=== PATIENT | male | born 1940 | race Caucasian/White ===

== ENCOUNTER 2021-04-29 12:42 | Inpatient (IN) | payer OTHER ==
[~2021-04-29] VITALS: Ht 167.6 cm; Wt 69.9 kg
[2021-04-29 13:26] LABS: BASOPHILS % 0.6 % (0.0-2.0); EOSINOPHILS % 0.2 % (0.0-5.0); LYMPHOCYTES % 13.9 % (20.0-50.0); MEAN CORPUSCULAR HEMOGLOBIN 32.9 pg (28.0-32.0); MEAN CORPUSCULAR VOLUME 100.1 fL (80.0-94.0); MEAN PLATELET VOLUME 7.4 fl (7.4-10.4); MONOCYTES % 5.8 % (2.0-8.0); NEUTROPHILS % 79.5 % (40.0-76.0); PLATELET 237 x1000/uL (130-400); RED BLOOD CELL COUNT 1.18 mill/uL (4.7-6.1); RED CELL DISTRIBUTION WIDTH 17.6 % (11.6-14.6)
[2021-04-29 13:28] LABS: CHLORIDE 105 mEq/L (98-107)
[2021-04-29] MEDS ORDERED: OCTREOTIDE ACETATE 50 MCG/ML 1ML IV STA (13:28)
[2021-04-29] MEDS ORDERED: PANTOPRAZOLE 80 MG in SODIUM CHLORIDE 0.9% 100 ML IV STA (13:28)
[2021-04-29] MEDS ORDERED: PANTOPRAZOLE SODIUM 40 MG/VIAL IV STA (13:28)
[2021-04-29] MEDS ORDERED: CEFTRIAXONE 1 G PREMIX 50 ML IV ONE (13:30)
[2021-04-29] MEDS ORDERED: METOCLOPRAMIDE HCL 10MG/2ML VIAL IV ONE (13:30)
[2021-04-29 13:31] LABS: INR 1.5; PROTHROMBIN TIME 15.6 sec (9.6-11.0)
[2021-04-29 13:32] LABS: ETHANOL BLOOD < 10 mg/dL
[2021-04-29 13:33] LABS: HEMATOCRIT. 11.8 % (42.0-52.0); HEMOGLOBIN. 3.9 g/dL (14.0-18.0)
[2021-04-29 13:37] LABS: CREATINE KINASE 46 IU/L (39-308)
[2021-04-29] MEDS ORDERED: TRANEXAMIC ACID 1,000 MG/10 ML IV ONE (13:45)
[2021-04-29 15:23] LABS: HEPATITIS B SURFACE ANTIGEN NEGATIVE
[2021-04-29] MEDS ORDERED: MAGNESIUM/ALUMINUM HYDROXIDE/SIMETHICONE 30ML UDC PO PRN (18:45)
[2021-04-29] MEDS ORDERED: CLONIDINE 0.1MG TABLET PO PRN (18:45)
[2021-04-29] MEDS ORDERED: NALOXONE HCL 0.4MG/ML VIAL IV PRN (18:45)
[2021-04-29] MEDS ORDERED: HYDROCODONE/ACETAMINOPHEN 5/325MG TABLET PO PRN (18:45)
[2021-04-29] MEDS ORDERED: GUAIFENESIN 200MG/10ML SUGAR FREE UDC PO PRN (18:45)
[2021-04-29] MEDS ORDERED: ONDANSETRON HCL 4MG/2ML INJ IV PRN (18:45)
[2021-04-29] MEDS ORDERED: IPRATROPIUM/ALBUTEROL 0.5-3(2.5)MG/3ML NEB HHN PRN (18:45)
[2021-04-29] MEDS ORDERED: HYDRALAZINE 20MG/ML VIAL IV PRN (18:45)
[2021-04-29] MEDS ORDERED: ACETAMINOPHEN 325MG TABLET PO PRN (18:45)
[2021-04-29] MEDS ORDERED: DOCUSATE SODIUM 100MG CAPSULE PO PRN (18:45)
[2021-04-29] MEDS ORDERED: MORPHINE SULFATE 2 MG/ML CPJ (NOT FOR IM USE) IV PRN (18:45)
[2021-04-29] MEDS ORDERED: LACTULOSE 20G/30ML UDC PO SCH (19:00)
[2021-04-29] MEDS ORDERED: OCTREOTIDE 1,000 MCG in SODIUM CHLORIDE 0.9% 100 ML IV SCH ×4 (19:30)
[2021-04-29 20:13] LABS: TOTAL IRON BINDING CAPACITY 163 ug/dL (250-450)
[2021-04-29 20:17] LABS: FOLIC ACID (FOLATE) SERUM >20 ng/mL ng/mL (>5.38)
[2021-04-29 20:29] LABS: VITAMIN B12 SERUM >2000 pg/mL pg/mL (211-911)
[2021-04-29] MEDS: LORAZEPAM 2MG/ML CPJ IV PRN (20:29)
[2021-04-29] MEDS: DEXT 5%/0.45% NACL 1000ML 1,000 ML IV SCH (20:57)
[2021-04-29] MEDS: SODIUM CHLORIDE 0.9% INJ 3ML FLUSH IVF SCH (22:26)
[2021-04-29 22:41] LABS: FERRITIN 7206 ng/mL (22-322)
[2021-04-30] VITALS (42 sets, daily range): BP systolic 57–167; BP diastolic 19–105
[2021-04-30 03:09] LABS: HEMATOCRIT 26.5 % (42.0-52.0)
[2021-04-30] MEDS: LORAZEPAM 2MG/ML CPJ IV PRN (05:14)
[2021-04-30 05:21] LABS: BASOPHILS % 0.9 % (0.0-2.0); EOSINOPHILS % 0.7 % (0.0-5.0); HEMATOCRIT. 25.6 % (42.0-52.0); HEMOGLOBIN. 8.5 g/dL (14.0-18.0); LYMPHOCYTES % 19.9 % (20.0-50.0); MEAN CORPUSCULAR HEMOGLOBIN 30.8 pg (28.0-32.0); MEAN CORPUSCULAR VOLUME 92.3 fL (80.0-94.0); MEAN PLATELET VOLUME 8.2 fl (7.4-10.4); MONOCYTES % 7.5 % (2.0-8.0); PLATELET 121 x1000/uL (130-400); RED BLOOD CELL COUNT 2.77 mill/uL (4.7-6.1); RED CELL DISTRIBUTION WIDTH 16.6 % (11.6-14.6)
[2021-04-30 05:34] LABS: CHLORIDE 106 mEq/L (98-107)
[2021-04-30] MEDS: SODIUM CHLORIDE 0.9% INJ 3ML FLUSH IVF SCH ×2 (06:07→21:01)
[2021-04-30] MEDS ORDERED: NICARDIPINE 100 MG in SODIUM CHLORIDE 0.9% 60 ML IV PRN (10:00)
[2021-04-30] MEDS ORDERED: IOHEXOL-350 100 ML BOTTLE ONE (11:02)
[2021-04-30] MEDS: OCTREOTIDE 1,000 MCG in SODIUM CHLORIDE 0.9% 98 ML IV SCH (12:05)
[2021-04-30] MEDS: LEVETIRACETAM 500MG PREMIX 100 ML IV SCH ×2 (12:05→21:01)
[2021-04-30] MEDS: LACTULOSE 20G/30ML UDC PO SCH ×2 (12:10→18:23)
[2021-04-30] MEDS ORDERED: LIDOCAINE HCL/PF 1% 10 MG/ML 5ML VIAL ONE (12:57)
[2021-04-30 12:58] LABS: HEMOGLOBIN 8.1 g/dL (14.0-18.0)
[2021-04-30] MEDS ORDERED: NEPVIT PO (16:52)
[2021-04-30] MEDS ORDERED: FOLI20CA MT (16:52)
[2021-04-30] MEDS ORDERED: CALC667T6 MT (16:52)
[2021-04-30] MEDS ORDERED: ASPI-1497 PO (16:52)
[2021-04-30] MEDS ORDERED: ASCO100T12 MT (16:52)
[2021-04-30] MEDS ORDERED: GABA-529 PO (16:52)
[2021-04-30] MEDS ORDERED: FURO40TA5 PO (16:52)
[2021-04-30] MEDS ORDERED: LATA2.5D14 EACHEYE (16:52)
[2021-04-30] MEDS: DEXT 5%/0.45% NACL 1000ML 1,000 ML IV SCH (18:23)
[2021-04-30 18:40] LABS: HEMATOCRIT 25.6 % (42.0-52.0); HEMOGLOBIN 8.7 g/dL (14.0-18.0)
[2021-05-01] VITALS (83 sets, daily range): BP systolic 38–167; BP diastolic 27–117
[2021-05-01 00:56] LABS: HEMATOCRIT 23.4 % (42.0-52.0)
[2021-05-01] MEDS: LACTULOSE 20G/30ML UDC PO SCH ×5 (00:56→23:53)
[2021-05-01] MEDS: OCTREOTIDE 1,000 MCG in SODIUM CHLORIDE 0.9% 98 ML IV SCH (05:11)
[2021-05-01] MEDS: SODIUM CHLORIDE 0.9% INJ 3ML FLUSH IVF SCH ×3 (05:12→22:00)
[2021-05-01 06:14] LABS: EOSINOPHILS % 1.4 % (0.0-5.0); HEMATOCRIT. 24.4 % (42.0-52.0); HEMOGLOBIN. 8.4 g/dL (14.0-18.0); LYMPHOCYTES % 15.8 % (20.0-50.0); MEAN CORPUSCULAR HEMOGLOBIN 31.9 pg (28.0-32.0); MEAN CORPUSCULAR VOLUME 92.7 fL (80.0-94.0); MEAN PLATELET VOLUME 8.6 fl (7.4-10.4); NEUTROPHILS % 74.8 % (40.0-76.0); PLATELET 126 x1000/uL (130-400); RED BLOOD CELL COUNT 2.63 mill/uL (4.7-6.1); RED CELL DISTRIBUTION WIDTH 17.3 % (11.6-14.6)
[2021-05-01 07:44] LABS: BG BASE EXCESS 2.7 mmol/L (-2.0-2.0); BG CARBOXYHEMOGLOBIN 0.7 % (0.5-1.5); BG DEOXYHEMOGLOBIN 3.7 % (0.0-5.0); BG HCO3 ACT 27.6 mmol/L (22.0-26.0); BG METHEMOGLOBIN 0.3 % (0.0-1.5); BG OXYGEN SATURATION 96.3 % (92.0-98.5); BG OXYHEMOGLOBIN 95.3 % (94.0-97.0); BG PCO2 43.8 mmHg (35.0-45.0); BG PH 7.417 (7.350-7.450); BG PO2 82.5 mmHg (75.0-100.0); BG SAMPLE SITE RIGHT BRACHIAL; BG TOTAL HEMOGLOBIN 9.7 g/dL (12.0-18.0); BG VENT MODE ROOM AIR
[2021-05-01] MEDS: LEVETIRACETAM 500MG PREMIX 100 ML IV SCH ×2 (10:11→20:17)
[2021-05-01 10:54] LABS: HEMATOCRIT 24.9 % (42.0-52.0); HEMOGLOBIN 8.6 g/dL (14.0-18.0)
[2021-05-01] MEDS ORDERED: NOREPINEPHRINE 8 MG in DEXT 5% WATER 242 ML IV PRN (12:00)
[2021-05-01 16:41] LABS: HEMATOCRIT 24.1 % (42.0-52.0); HEMOGLOBIN 8.4 g/dL (14.0-18.0)
[2021-05-01] MEDS: PANTOPRAZOLE SODIUM 40 MG/VIAL IV SCH (18:08)
[2021-05-01] MEDS: DEXT 5%/0.45% NACL 1000ML 1,000 ML IV SCH (18:32)
[2021-05-01 20:13] LABS: HEMATOCRIT 24.5 % (42.0-52.0); HEMOGLOBIN 8.3 g/dL (14.0-18.0)
[2021-05-02] VITALS (33 sets, daily range): BP systolic 99–165; BP diastolic 37–114
[2021-05-02 02:07] LABS: HEMATOCRIT 24.3 % (42.0-52.0); HEMOGLOBIN 8.3 g/dL (14.0-18.0)
[2021-05-02 05:59] LABS: BASOPHILS % 0.9 % (0.0-2.0); EOSINOPHILS % 1.8 % (0.0-5.0); HEMATOCRIT. 23.3 % (42.0-52.0); HEMOGLOBIN. 7.9 g/dL (14.0-18.0); LYMPHOCYTES % 16.9 % (20.0-50.0); MEAN CORPUSCULAR HEMOGLOBIN 31.4 pg (28.0-32.0); MEAN CORPUSCULAR VOLUME 92.7 fL (80.0-94.0); MEAN PLATELET VOLUME 8.7 fl (7.4-10.4); MONOCYTES % 6.6 % (2.0-8.0); NEUTROPHILS % 73.8 % (40.0-76.0); PLATELET 141 x1000/uL (130-400); RED BLOOD CELL COUNT 2.52 mill/uL (4.7-6.1); RED CELL DISTRIBUTION WIDTH 16.8 % (11.6-14.6)
[2021-05-02] MEDS: SODIUM CHLORIDE 0.9% INJ 3ML FLUSH IVF SCH ×3 (06:00→20:47)
[2021-05-02] MEDS: PANTOPRAZOLE SODIUM 40 MG/VIAL IV SCH ×2 (06:05→17:55)
[2021-05-02] MEDS: LACTULOSE 20G/30ML UDC PO SCH ×4 (06:05→23:22)
[2021-05-02] MEDS: LEVETIRACETAM 500MG PREMIX 100 ML IV SCH ×2 (09:48→20:46)
[2021-05-02 15:36] LABS: HEMATOCRIT 23.6 % (42.0-52.0)
[2021-05-02] MEDS: DEXT 5%/0.45% NACL 1000ML 1,000 ML IV SCH (17:55)
[2021-05-02 21:26] LABS: HEPATITIS B SURFACE ANTIGEN NEGATIVE
[2021-05-03] VITALS: BP 149/77
[2021-05-03] MEDS: DIPHENHYDRAMINE 50MG/ML VIAL IV PRN (02:45)
[2021-05-03 04:00] VITALS: BP_SYST 140; BP_SYST 170; BP_DIAS 57; BP_DIAS 71
[2021-05-03] MEDS: PANTOPRAZOLE SODIUM 40 MG/VIAL IV SCH ×2 (05:39→17:56)
[2021-05-03] MEDS: LACTULOSE 20G/30ML UDC PO SCH ×4 (05:39→23:55)
[2021-05-03] MEDS: SODIUM CHLORIDE 0.9% INJ 3ML FLUSH IVF SCH ×3 (05:40→21:35)
[2021-05-03 07:40] LABS: EOSINOPHILS % 2.1 % (0.0-5.0); HEMATOCRIT. 22.9 % (42.0-52.0); HEMOGLOBIN. 7.8 g/dL (14.0-18.0); LYMPHOCYTES % 19.8 % (20.0-50.0); MEAN CORPUSCULAR HEMOGLOBIN 31.9 pg (28.0-32.0); MEAN CORPUSCULAR VOLUME 93.3 fL (80.0-94.0); MEAN PLATELET VOLUME 8.6 fl (7.4-10.4); MONOCYTES % 6.4 % (2.0-8.0); NEUTROPHILS % 70.7 % (40.0-76.0); PLATELET 129 x1000/uL (130-400); RED BLOOD CELL COUNT 2.45 mill/uL (4.7-6.1); RED CELL DISTRIBUTION WIDTH 16.6 % (11.6-14.6)
[2021-05-03 08:00] VITALS: BP 146/79
[2021-05-03] MEDS: LEVETIRACETAM 500MG PREMIX 100 ML IV SCH ×2 (08:20→21:35)
[2021-05-03 12:00] VITALS: BP 98/65
[2021-05-03 16:00] VITALS: BP 126/59
[2021-05-03] MEDS: DEXT 5%/0.45% NACL 1000ML 1,000 ML IV SCH (17:56)
[2021-05-03 20:00] VITALS: BP 115/65
[2021-05-04] VITALS: BP 144/63
[2021-05-04] MEDS: DIPHENHYDRAMINE 50MG/ML VIAL IV PRN (00:03)
[2021-05-04 04:00] VITALS: BP 128/72
[2021-05-04] MEDS: LACTULOSE 20G/30ML UDC PO SCH ×3 (05:34→17:50)
[2021-05-04] MEDS: PANTOPRAZOLE SODIUM 40 MG/VIAL IV SCH ×2 (05:34→17:50)
[2021-05-04] MEDS: SODIUM CHLORIDE 0.9% INJ 3ML FLUSH IVF SCH ×3 (05:35→22:12)
[2021-05-04 08:00] VITALS: BP 139/82
[2021-05-04] MEDS: LEVETIRACETAM 500MG PREMIX 100 ML IV SCH ×2 (08:28→22:12)
[2021-05-04] MEDS: AMLODIPINE 2.5MG TABLET NG SCH (11:29)
[2021-05-04 12:00] VITALS: BP 155/87
[2021-05-04 16:00] VITALS: BP 140/78
[2021-05-04] MEDS: DEXT 5%/0.45% NACL 1000ML 1,000 ML IV SCH (17:50)
[2021-05-04 20:00] VITALS: BP 107/62
[2021-05-05] VITALS: BP 140/72
[2021-05-05] MEDS: SODIUM CHLORIDE 0.9% INJ 3ML FLUSH IVF SCH ×3 (06:00→22:00)
[2021-05-05] MEDS: PANTOPRAZOLE SODIUM 40 MG/VIAL IV SCH ×2 (06:00→17:12)
[2021-05-05 06:19] LABS: BASOPHILS % 0.3 % (0.0-2.0); EOSINOPHILS % 1.5 % (0.0-5.0); HEMATOCRIT. 26.7 % (42.0-52.0); LYMPHOCYTES % 18.6 % (20.0-50.0); MEAN CORPUSCULAR HEMOGLOBIN 31.8 pg (28.0-32.0); MEAN PLATELET VOLUME 8.9 fl (7.4-10.4); MONOCYTES % 6.5 % (2.0-8.0); NEUTROPHILS % 73.1 % (40.0-76.0); PLATELET 129 x1000/uL (130-400); RED BLOOD CELL COUNT 2.83 mill/uL (4.7-6.1); RED CELL DISTRIBUTION WIDTH 17.1 % (11.6-14.6)
[2021-05-05] MEDS: LACTULOSE 20G/30ML UDC PO SCH ×4 (06:54→17:12)
[2021-05-05 08:00] VITALS: BP 118/70
[2021-05-05] MEDS: AMLODIPINE 2.5MG TABLET NG SCH (09:46)
[2021-05-05] MEDS: LEVETIRACETAM 500MG PREMIX 100 ML IV SCH ×2 (10:27→21:31)
[2021-05-05] MEDS ORDERED: POTASSIUM CHLORIDE 20MEQ TABLET SR PO NR (11:00)
[2021-05-05 12:00] VITALS: BP 107/86
[2021-05-05 16:00] VITALS: BP 151/77
[2021-05-05] MEDS: DEXT 5%/0.45% NACL 1000ML 1,000 ML IV SCH (17:12)
[2021-05-05 20:00] VITALS: BP_SYST 112; BP_SYST 125; BP_DIAS 66; BP_DIAS 68
[2021-05-06] VITALS: BP 107/64
[2021-05-06 04:00] VITALS: BP 142/72
[2021-05-06] MEDS: LACTULOSE 20G/30ML UDC PO SCH ×5 (06:00→23:55)
[2021-05-06 07:41] LABS: BASOPHILS % 0.5 % (0.0-2.0); EOSINOPHILS % 2.3 % (0.0-5.0); HEMATOCRIT. 24.1 % (42.0-52.0); HEMOGLOBIN. 8.2 g/dL (14.0-18.0); LYMPHOCYTES % 18.5 % (20.0-50.0); MEAN CORPUSCULAR VOLUME 93.9 fL (80.0-94.0); MEAN PLATELET VOLUME 9.3 fl (7.4-10.4); MONOCYTES % 7.5 % (2.0-8.0); NEUTROPHILS % 71.2 % (40.0-76.0); PLATELET 94 x1000/uL (130-400); RED BLOOD CELL COUNT 2.56 mill/uL (4.7-6.1); RED CELL DISTRIBUTION WIDTH 17.9 % (11.6-14.6)
[2021-05-06 08:00] VITALS: BP 178/73
[2021-05-06] MEDS ORDERED: POTASSIUM CHLORIDE 20MEQ TABLET SR PO SCH (08:45)
[2021-05-06] MEDS: PANTOPRAZOLE SODIUM 40 MG/VIAL IV SCH ×2 (08:50→17:35)
[2021-05-06] MEDS: SODIUM CHLORIDE 0.9% INJ 3ML FLUSH IVF SCH ×3 (08:51→22:00)
[2021-05-06] MEDS: AMLODIPINE 2.5MG TABLET PO SCH (08:51)
[2021-05-06] MEDS: LEVETIRACETAM 500MG PREMIX 100 ML IV SCH ×2 (08:52→22:00)
[2021-05-06 12:00] VITALS: BP 120/67
[2021-05-06] MEDS ORDERED: ATROPINE SULFATE 1MG/10ML SYR IV PRN (14:45)
[2021-05-06] MEDS ORDERED: ATROPINE SULFATE 1MG/10ML SYR IV NR (15:30)
[2021-05-06 16:00] VITALS: BP 113/50
[2021-05-06] MEDS: DEXT 5%/0.45% NACL 1000ML 1,000 ML IV SCH (17:35)
[2021-05-06 20:00] VITALS: BP 124/74
[2021-05-07] VITALS: BP 120/78
[2021-05-07 04:00] VITALS: BP 163/95
[2021-05-07 06:17] LABS: BASOPHILS % 0.3 % (0.0-2.0); EOSINOPHILS % 1.4 % (0.0-5.0); HEMATOCRIT. 24.2 % (42.0-52.0); HEMOGLOBIN. 8.3 g/dL (14.0-18.0); LYMPHOCYTES % 15.7 % (20.0-50.0); MEAN CORPUSCULAR VOLUME 93.7 fL (80.0-94.0); MEAN PLATELET VOLUME 9.6 fl (7.4-10.4); NEUTROPHILS % 76.6 % (40.0-76.0); PLATELET 96 x1000/uL (130-400); RED BLOOD CELL COUNT 2.58 mill/uL (4.7-6.1); RED CELL DISTRIBUTION WIDTH 17.1 % (11.6-14.6)
[2021-05-07] MEDS: LACTULOSE 20G/30ML UDC PO SCH ×3 (06:55→18:14)
[2021-05-07] MEDS: PANTOPRAZOLE SODIUM 40 MG/VIAL IV SCH ×2 (06:56→18:14)
[2021-05-07] MEDS: SODIUM CHLORIDE 0.9% INJ 3ML FLUSH IVF SCH ×3 (06:56→21:39)
[2021-05-07 08:00] VITALS: BP 119/77
[2021-05-07] MEDS: LEVETIRACETAM 500MG PREMIX 100 ML IV SCH ×2 (09:12→21:39)
[2021-05-07] MEDS: AMLODIPINE 2.5MG TABLET PO SCH (09:13)
[2021-05-07] MEDS ORDERED: LEVOTHYROXINE SODIUM 25MCG TABLET PO SCH (10:00)
[2021-05-07 12:00] VITALS: BP 132/62
[2021-05-07 16:00] VITALS: BP 139/87
[2021-05-07] MEDS: DEXT 5%/0.45% NACL 1000ML 1,000 ML IV SCH (18:14)
[2021-05-07 20:00] VITALS: BP 127/66
[2021-05-08] VITALS: BP 102/57
[2021-05-08 04:00] VITALS: BP 131/82
[2021-05-08] MEDS: LEVOTHYROXINE SODIUM 25MCG TABLET PO SCH (05:33)
[2021-05-08] MEDS: SODIUM CHLORIDE 0.9% INJ 3ML FLUSH IVF SCH ×3 (05:33→22:03)
[2021-05-08] MEDS: PANTOPRAZOLE SODIUM 40 MG/VIAL IV SCH ×2 (05:33→17:19)
[2021-05-08] MEDS: LACTULOSE 20G/30ML UDC PO SCH ×4 (05:33→17:19)
[2021-05-08 06:22] LABS: HEMATOCRIT. 26.6 % (42.0-52.0); HEMOGLOBIN. 8.9 g/dL (14.0-18.0); MEAN CORPUSCULAR HEMOGLOBIN 31.9 pg (28.0-32.0); MEAN CORPUSCULAR VOLUME 95.4 fL (80.0-94.0); PLATELET 90 x1000/uL (130-400); RED BLOOD CELL COUNT 2.79 mill/uL (4.7-6.1); RED CELL DISTRIBUTION WIDTH 18.1 % (11.6-14.6)
[2021-05-08 06:34] LABS: INR 1.2; PROTHROMBIN TIME 12.4 sec (9.6-11.0)
[2021-05-08 08:00] VITALS: BP 121/53
[2021-05-08] MEDS: LEVETIRACETAM 500MG PREMIX 100 ML IV SCH ×2 (10:04→22:03)
[2021-05-08] MEDS: AMLODIPINE 2.5MG TABLET PO SCH (10:05)
[2021-05-08 12:00] VITALS: BP 124/76
[2021-05-08 15:44] LABS: PLATELET ESTIMATE DECREASED
[2021-05-08 16:00] VITALS: BP 119/76
[2021-05-08] MEDS: DEXT 5%/0.45% NACL 1000ML 1,000 ML IV SCH ×2 (18:38→22:03)
[2021-05-08 20:00] VITALS: BP 139/81
[2021-05-09] VITALS: BP 126/62
[2021-05-09] MEDS: LACTULOSE 20G/30ML UDC PO SCH ×5 (00:35→23:47)
[2021-05-09 04:00] VITALS: BP 127/59
[2021-05-09] MEDS: SODIUM CHLORIDE 0.9% INJ 3ML FLUSH IVF SCH ×3 (05:17→20:24)
[2021-05-09] MEDS: PANTOPRAZOLE SODIUM 40 MG/VIAL IV SCH ×2 (05:17→17:56)
[2021-05-09] MEDS: LEVOTHYROXINE SODIUM 25MCG TABLET PO SCH (05:17)
[2021-05-09 08:00] VITALS: BP 114/56
[2021-05-09] MEDS: AMLODIPINE 2.5MG TABLET PO SCH (09:18)
[2021-05-09] MEDS: LEVETIRACETAM 500MG PREMIX 100 ML IV SCH ×2 (09:18→20:23)
[2021-05-09 12:00] VITALS: BP 130/72
[2021-05-09 16:00] VITALS: BP 119/52
[2021-05-09 20:00] VITALS: BP 118/65
[2021-05-10] VITALS: BP 110/69
[2021-05-10 04:00] VITALS: BP 139/67
[2021-05-10] MEDS: SODIUM CHLORIDE 0.9% INJ 3ML FLUSH IVF SCH ×3 (05:57→21:37)
[2021-05-10] MEDS: LACTULOSE 20G/30ML UDC PO SCH ×3 (05:57→17:56)
[2021-05-10] MEDS: PANTOPRAZOLE SODIUM 40 MG/VIAL IV SCH ×2 (05:57→17:57)
[2021-05-10] MEDS: LEVOTHYROXINE SODIUM 25MCG TABLET PO SCH (05:57)
[2021-05-10 07:42] LABS: BASOPHILS % 0.4 % (0.0-2.0); HEMATOCRIT. 25.2 % (42.0-52.0); HEMOGLOBIN. 8.5 g/dL (14.0-18.0); LYMPHOCYTES % 18.3 % (20.0-50.0); MEAN PLATELET VOLUME 10.1 fl (7.4-10.4); MONOCYTES % 6.5 % (2.0-8.0); NEUTROPHILS % 73.8 % (40.0-76.0); PLATELET 83 x1000/uL (130-400); RED BLOOD CELL COUNT 2.66 mill/uL (4.7-6.1); RED CELL DISTRIBUTION WIDTH 17.7 % (11.6-14.6)
[2021-05-10 08:00] VITALS: BP 140/86
[2021-05-10] MEDS: LEVETIRACETAM 500MG PREMIX 100 ML IV SCH ×2 (09:11→21:37)
[2021-05-10] MEDS: AMLODIPINE 2.5MG TABLET PO SCH (09:11)
[2021-05-10 12:00] VITALS: BP 119/71
[2021-05-10 16:00] VITALS: BP 115/71
[2021-05-10] MEDS: DEXT 5%/0.45% NACL 1000ML 1,000 ML IV SCH (17:57)
[2021-05-10 20:00] VITALS: BP 117/57
[2021-05-11] VITALS: BP 120/60
[2021-05-11] MEDS: LACTULOSE 20G/30ML UDC PO SCH ×5 (00:47→23:52)
[2021-05-11 04:00] VITALS: BP 133/72
[2021-05-11] MEDS: SODIUM CHLORIDE 0.9% INJ 3ML FLUSH IVF SCH ×3 (06:09→21:16)
[2021-05-11] MEDS: LEVOTHYROXINE SODIUM 25MCG TABLET PO SCH (06:10)
[2021-05-11] MEDS: PANTOPRAZOLE SODIUM 40 MG/VIAL IV SCH ×2 (06:10→18:17)
[2021-05-11 08:00] VITALS: BP 108/57
[2021-05-11] MEDS: LEVETIRACETAM 500MG PREMIX 100 ML IV SCH ×2 (09:31→21:17)
[2021-05-11] MEDS: AMLODIPINE 2.5MG TABLET PO SCH (09:32)
[2021-05-11 12:00] VITALS: BP 111/52
[2021-05-11 16:00] VITALS: BP 97/64
[2021-05-11] MEDS: DEXT 5%/0.45% NACL 1000ML 1,000 ML IV SCH (18:17)
[2021-05-11 20:00] VITALS: BP 95/62
[2021-05-12] VITALS: BP 100/72
[2021-05-12 04:00] VITALS: BP 95/50
[2021-05-12] MEDS: LEVOTHYROXINE SODIUM 25MCG TABLET PO SCH (05:45)
[2021-05-12] MEDS: SODIUM CHLORIDE 0.9% INJ 3ML FLUSH IVF SCH ×3 (05:45→20:23)
[2021-05-12] MEDS: LACTULOSE 20G/30ML UDC PO SCH ×5 (05:45→23:26)
[2021-05-12] MEDS: PANTOPRAZOLE SODIUM 40 MG/VIAL IV SCH ×2 (05:45→18:22)
[2021-05-12 08:00] VITALS: BP 135/84
[2021-05-12] MEDS: LEVETIRACETAM 500MG PREMIX 100 ML IV SCH ×2 (09:46→20:23)
[2021-05-12] MEDS: AMLODIPINE 2.5MG TABLET PO SCH (09:47)
[2021-05-12 12:00] VITALS: BP_SYST 14; BP_SYST 199; BP_DIAS 72; BP_DIAS 82
[2021-05-12 16:00] VITALS: BP 120/76
[2021-05-12 17:37] LABS: BASOPHILS % 0.2 % (0.0-2.0); EOSINOPHILS % 1.3 % (0.0-5.0); HEMATOCRIT. 25.4 % (42.0-52.0); HEMOGLOBIN. 8.6 g/dL (14.0-18.0); LYMPHOCYTES % 21.5 % (20.0-50.0); MEAN CORPUSCULAR HEMOGLOBIN 31.9 pg (28.0-32.0); MEAN CORPUSCULAR VOLUME 94.4 fL (80.0-94.0); MEAN PLATELET VOLUME 10.3 fl (7.4-10.4); MONOCYTES % 7.4 % (2.0-8.0); NEUTROPHILS % 69.6 % (40.0-76.0); PLATELET 73 x1000/uL (130-400); RED CELL DISTRIBUTION WIDTH 17.2 % (11.6-14.6)
[2021-05-12 17:48] LABS: INR 1.1; PROTHROMBIN TIME 12.2 sec (9.6-11.0)
[2021-05-12] MEDS: DEXT 5%/0.45% NACL 1000ML 1,000 ML IV SCH (18:32)
[2021-05-12 20:00] VITALS: BP 102/68
[2021-05-13] VITALS: BP 90/71
[2021-05-13 04:00] VITALS: BP 131/63
[2021-05-13 04:48] VITALS: BP 131/63
[2021-05-13] MEDS: LEVOTHYROXINE SODIUM 25MCG TABLET PO SCH (06:43)
[2021-05-13] MEDS: LACTULOSE 20G/30ML UDC PO SCH (06:43)
[2021-05-13] MEDS: SODIUM CHLORIDE 0.9% INJ 3ML FLUSH IVF SCH (06:43)
[2021-05-13] MEDS: PANTOPRAZOLE SODIUM 40 MG/VIAL IV SCH (06:43)
[2021-05-13 08:00] VITALS: BP 100/56
[2021-05-13] MEDS: AMLODIPINE 2.5MG TABLET PO SCH (08:59)
== END 2021-05-13 09:50 | disposition home or self-care (01) | DRG 64 ==
LOC: EDBD 13:01 → ER 13:01 → MICUSO 14:31 → EDBEDREQTM 14:32 → EDBEDREQSVC 14:32 → EDBEDREQ 14:32 → MICUSO 04-30 08:42 → 5WST 05-02 17:34
PROVIDERS: ADMIT Internal Medicine; ATTEND Internal Medicine
PROC: 30233K1 Transfusion of Nonautologous Frozen Plasma into Peripheral Vein, Percutaneous Approach (ICD-10-PCS; 2021-04-29)
PROC: 30233N1 Transfusion of Nonautologous Red Blood Cells into Peripheral Vein, Percutaneous Approach (ICD-10-PCS; 2021-04-29)
PROC: 5A1D70Z Performance of Urinary Filtration, Intermittent, Less than 6 Hours Per Day (ICD-10-PCS; 2021-04-29)
PROC: 05H533Z Insertion of Infusion Device into Right Subclavian Vein, Percutaneous Approach (ICD-10-PCS; principal; 2021-04-30)
PROC: B546ZZA Ultrasonography of Right Subclavian Vein, Guidance (ICD-10-PCS; 2021-04-30)
PROC: 5A1D70Z Performance of Urinary Filtration, Intermittent, Less than 6 Hours Per Day (ICD-10-PCS; 2021-05-01)
PROC: 5A1D70Z Performance of Urinary Filtration, Intermittent, Less than 6 Hours Per Day (ICD-10-PCS; 2021-05-03)
PROC: 5A1D70Z Performance of Urinary Filtration, Intermittent, Less than 6 Hours Per Day (ICD-10-PCS; 2021-05-06)
PROC: 5A1D70Z Performance of Urinary Filtration, Intermittent, Less than 6 Hours Per Day (ICD-10-PCS; 2021-05-08)
PROC: 5A1D70Z Performance of Urinary Filtration, Intermittent, Less than 6 Hours Per Day (ICD-10-PCS; 2021-05-10)
PROC: 5A1D70Z Performance of Urinary Filtration, Intermittent, Less than 6 Hours Per Day (ICD-10-PCS; 2021-05-12)
DX: I61.5 Nontraumatic intracerebral hemorrhage, intraventricular (principal); J96.00 Acute respiratory failure, unspecified whether with hypoxia or hypercapnia; N18.6 End stage renal disease; E43 Unspecified severe protein-calorie malnutrition; J81.0 Acute pulmonary edema; K92.0 Hematemesis; J90 Pleural effusion, not elsewhere classified; D62 Acute posthemorrhagic anemia; E72.20 Disorder of urea cycle metabolism, unspecified; D68.9 Coagulation defect, unspecified; G93.49 Other encephalopathy; J84.9 Interstitial pulmonary disease, unspecified; I48.19 Other persistent atrial fibrillation; I31.3 Pericardial effusion (noninflammatory); I42.9 Cardiomyopathy, unspecified; R18.8 Other ascites; R47.01 Aphasia; I12.0 Hypertensive chronic kidney disease with stage 5 chronic kidney disease or end stage renal disease; J81.1 Chronic pulmonary edema; E87.70 Fluid overload, unspecified; K56.41 Fecal impaction; I61.0 Nontraumatic intracerebral hemorrhage in hemisphere, subcortical; K70.40 Alcoholic hepatic failure without coma; K80.20 Calculus of gallbladder without cholecystitis without obstruction; E11.22 Type 2 diabetes mellitus with diabetic chronic kidney disease; R04.0 Epistaxis; E11.51 Type 2 diabetes mellitus with diabetic peripheral angiopathy without gangrene; D53.9 Nutritional anemia, unspecified; D69.6 Thrombocytopenia, unspecified; E03.9 Hypothyroidism, unspecified; Z20.822 Contact with and (suspected) exposure to COVID-19; E87.6 Hypokalemia; F10.10 Alcohol abuse, uncomplicated; Y90.9 Presence of alcohol in blood, level not specified; I27.20 Pulmonary hypertension, unspecified; Z79.899 Other long term (current) drug therapy; Z86.73 Personal history of transient ischemic attack (TIA), and cerebral infarction without residual deficits; Z79.82 Long term (current) use of aspirin; Z68.24 Body mass index [BMI] 24.0-24.9, adult; Z89.511 Acquired absence of right leg below knee; Z89.512 Acquired absence of left leg below knee; Z79.01 Long term (current) use of anticoagulants; Z99.2 Dependence on renal dialysis
CPT/HCPCS: 36415; 36600; 70496; 71045; 74176; 76700; 76937; 80048; 80053; 80076; 80307; 80320; 80329; 82140; 82248; 82375; 82550; 82607; 82728; 82746; 82805; 82962; 83540; 83550; 83605; 83735; 84443; 84484; 85014; 85018; 85025; 85044; 86705; 86709; 86803; 86850; 86900; 86920; 86927; 87340; 87426; 92610; 93005; 93306; 93970; 97162; 97166; 97530; 99291; A6261; C1725; C1769; C1893; C9113; J0360; J0461; J0696; J1200; J1953; J2060; J2354; J2765; J3490; J7040; J7050; P9016; P9017; Q9967; A4315; G0480